=== PATIENT | female | born 1945 | race Caucasian/White ===

== ENCOUNTER → 2020-04-14 12:49 | Outpatient (BNVA) | payer MEDICARE, OTHER, SELFPAY | PROVIDERS: Visit Provider Family Medicine | DX: Z11.59 Encounter for screening for other viral diseases (principal) | CPT/HCPCS: 87635 ==

== ENCOUNTER → 2020-12-04 12:19 | Outpatient (BNVA) | payer MEDICARE, OTHER, SELFPAY | PROVIDERS: Visit Provider Family Medicine | DX: M79.676 Pain in unspecified toe(s) (principal); L57.0 Actinic keratosis; Z12.83 Encounter for screening for malignant neoplasm of skin | CPT/HCPCS: 36415; 84550 ==

== ENCOUNTER 2025-07-02 12:45 | Outpatient (RCR) | payer OTHER, SELFPAY | END 2025-07-30 23:59 | disposition home or self-care (01) | LOC: SPT 12:45 | DX: N39.41 Urge incontinence (principal); K59.00 Constipation, unspecified | CPT/HCPCS: 97110; 97161; 97530 ==

== ENCOUNTER 2025-08-31 06:30 | Outpatient (RCR) | payer OTHER, SELFPAY | END 2025-09-03 15:24 | disposition home or self-care (01) | LOC: SPT 06:30 | DX: N39.41 Urge incontinence (principal) | CPT/HCPCS: 97110 ==